=== PATIENT | male | born 1975 | race Caucasian/White ===

== ENCOUNTER 2019-11-06 11:08 | Inpatient (IN) | payer OTHER ==
--- NOTE | 2019-11-06 11:39 | BHS.RME ---
Substance Use & Tx History - Substance Use History Alcohol Substance amount: 2 pints rum Frequency of use: Daily Substance route: Oral Date of Last Use: 11/06/19 Physical/Psych/Mental Status - Behavior General Behavior: Increased activity (restlessness, agitation) Eye Contact: Normal - Cooperativeness Cooperativeness: Cooperative - Thinking Thought Processes: Tight, Logical, Goal Directed - Physical Health Problems Is patient presently having any pain?: No Does patient presently have any injuries (include location): No Does patient currently have a fever: No Is patient : No CIWA Nausea/Vomitin Muscle Tremors: 3 Anxiety: 3 Agitation: 3 Paroxysmal Sweats: 4-Forehead w/Sweat Beads Orientation: 0-Oriented Tacttile Disturbances: 0-None Auditory Disturbances: 0-None Visual Disturbances: 0-None Headache: 3-Moderate CIWA-Ar Total Score: 18
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
[2019-11-06] MEDS ORDERED: MAG HYDROX/AL HYDROX/SIMETH 30 ML UNIT-DOSE CUP PO PRN (12:29)
[2019-11-06] MEDS ORDERED: BISMUTH SUBSALICYLATE 524 MG/30 ML UD PO PRN (12:29)
[2019-11-06] MEDS ORDERED: MENTHOL/PHENOL 1 EACH UD MM PRN (12:29)
[2019-11-06] MEDS ORDERED: ONDANSETRON *ODT* 4 MG TABLET SL PRN (12:29)
[2019-11-06] MEDS ORDERED: chlordiazePOXIDE HCL 25 MG CAPSULE PO PRN (12:29)
[2019-11-06] MEDS ORDERED: IBUPROFEN 400 MG TABLET (FP) PO PRN (12:29)
[2019-11-06] MEDS ORDERED: METHOCARBAMOL 500 MG TABLET PO PRN (12:29)
[2019-11-06] MEDS ORDERED: ACETAMINOPHEN 325 MG TABLET (FP) PO PRN ×2 (12:29)
[2019-11-06] MEDS ORDERED: MAGNESIUM HYDROX 2400MG/30ML ORAL SUSPENSION 30 ML CUP PO PRN (12:29)
[2019-11-06] MEDS ORDERED: MAGNESIUM CITRATE 300 ML BOTTLE PO PRN (12:29)
[2019-11-06 13:08] VITALS: BMI 38.9
[2019-11-06] MEDS ORDERED: hydrOXYzine PAMOATE 25 MG CAPSULE (FP) PO SCH (14:00)
[2019-11-06] MEDS ORDERED: AZITHROMYCIN 500 MG TABLET PO ONE (14:00)
[2019-11-06] MEDS ORDERED: LOSARTAN POTASSIUM 50 MG TABLET (FP) PO SCH (14:15)
[2019-11-06] MEDS ORDERED: LABETALOL HCL 100 MG TABLET (FP) PO SCH (14:15)
[2019-11-06] MEDS: PANTOPRAZOLE 40 MG TABLET PO SCH (14:23)
[2019-11-06] MEDS: AMOXICILLIN 500 MG CAPSULE (FP) PO SCH ×2 (14:23→22:40)
[2019-11-06] MEDS: amLODIPine BESYLATE 10 MG TABLET (FP) PO SCH (14:23)
[2019-11-06] MEDS: BACITRACIN 0.9 GM PACKET TP SCH ×2 (14:24→22:40)
[2019-11-06] MEDS: ASPIRIN 81 MG CHEWABLE TABLETS PO SCH (14:24)
[2019-11-06] MEDS ORDERED: hydrOXYzine PAMOATE 25 MG CAPSULE (FP) PO PRN (14:26)
[2019-11-06] MEDS: LOSARTAN POTASSIUM 25 MG TABLET PO SCH (16:03)
[2019-11-06 17:26] LABS: ALBUMIN 4.3 g/dl (3.4-5.0); BILIRUBIN,TOTAL 0.4 mg/dL (0.2-1); BLOOD UREA NITROGEN 10.1 mg/dL (7-18); CALCIUM 9.1 mg/dL (8.5-10.1); CREATININE 0.9 mg/dL (0.55-1.3); POTASSIUM 3.6 mmol/L (3.5-5.1); TOT PROT 8.3 g/dl (6.4-8.2)
[2019-11-06] MEDS: chlordiazePOXIDE HCL 25 MG CAPSULE PO SCH ×2 (17:44→22:43)
[2019-11-06] MEDS: LABETALOL HCL 100 MG TABLET (FP) PO SCH (22:40)
[2019-11-06] MEDS: MELATONIN 5 MG TABLETS PO SCH (22:40)
[2019-11-06] MEDS: THIAMINE HCL 100 MG TABLET (FP) PO SCH (22:40)
[2019-11-06] MEDS: GEMFIBROZIL 600 MG TABLET (FP) PO SCH (22:41)
[2019-11-07] MEDS: AMOXICILLIN 500 MG CAPSULE (FP) PO SCH ×3 (05:44→22:21)
[2019-11-07] MEDS: chlordiazePOXIDE HCL 25 MG CAPSULE PO SCH ×4 (05:44→22:22)
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
--- NOTE | 2019-11-07 10:32 | PN ---
S CIWA - CIWA Score Nausea/Vomitin-No Nausea/No Vomiting Muscle Tremors: 3 Anxiety: 3 Agitation: 3 Paroxysmal Sweats: 3 Orientation: 0-Oriented Tacttile Disturbances: 0-None Auditory Disturbances: 0-None Visual Disturbances: 0-None Headache: 0-None Present CIWA-Ar Total Score: 12 S Progress Note (SOAP) Subjective: sweats shakes body aches Objective: 11/07/19 10:27 Vital Signs Temperature 97 F L 11/07/19 05:30 Pulse Rate 73 11/07/19 05:30 Respiratory Rate 16 11/07/19 05:30 Blood Pressure 130/81 11/07/19 05:30 O2 Sat by Pulse Oximetry (%) 95 11/07/19 05:30 Laboratory Tests 11/06/19 11/06/19 11/06/19 13:00 13:30 14:00 Sodium 139 Potassium 3.6 Chloride 104 Carbon Dioxide 24 Anion Gap 11 BUN 10.1 Creatinine 0.9 Est GFR (CKD-EPI)AfAm 120.81 Est GFR (CKD-EPI)NonAf 104.24 Random Glucose 113 H Calcium 9.1 Total Bilirubin 0.4 AST 180 H ALT 251 H Alkaline Phosphatase 121 H Total Protein 8.3 H Albumin 4.3 Syphilis Serology Non-reactive HIV Ag/Ab Combo Qual Negative rest of labs pending noted elevated AST/ALT aaox3 ambulating no acute distress Assessment: 11/07/19 10:31 withdrawal sx Plan: continued detox increase fluids d/c tylenol repeat labs
[2019-11-07] MEDS: LABETALOL HCL 100 MG TABLET (FP) PO SCH ×2 (10:53→22:24)
[2019-11-07] MEDS: AZITHROMYCIN 250 MG TABLET PO SCH (10:53)
[2019-11-07] MEDS: BACITRACIN 0.9 GM PACKET TP SCH ×2 (10:53→22:23)
[2019-11-07] MEDS: PANTOPRAZOLE 40 MG TABLET PO SCH (10:53)
[2019-11-07] MEDS: ASPIRIN 81 MG CHEWABLE TABLETS PO SCH (10:53)
[2019-11-07] MEDS: PRENATAL VITAMINS W/ FOLIC ACID TABLET (FP) PO SCH (10:53)
[2019-11-07] MEDS: amLODIPine BESYLATE 10 MG TABLET (FP) PO SCH (10:53)
[2019-11-07] MEDS: GEMFIBROZIL 600 MG TABLET (FP) PO SCH ×2 (10:54→22:23)
[2019-11-07] MEDS: LOSARTAN POTASSIUM 25 MG TABLET PO SCH (10:56)
--- NOTE | 2019-11-07 12:47 | EKG ---
Test Reason : Blood Pressure : / mmHG Vent. Rate : 092 BPM Atrial Rate : 092 BPM P-R Int : 168 ms QRS Dur : 090 ms QT Int : 354 ms P-R-T Axes : 030 027 030 degrees QTc Int : 437 ms NORMAL SINUS RHYTHM CANNOT RULE OUT INFERIOR INFARCT , AGE UNDETERMINED NO PREVIOUS ECGS AVAILABLE Confirmed by KAILA ROJAS MD ([id number]) on 11/07/2019 12:46:44 PM Referred By: Confirmed By:KAILA ROJAS MD
[2019-11-07] MEDS: MIRTAZAPINE 15 MG TABLET (FP) PO SCH (22:22)
[2019-11-07] MEDS: THIAMINE HCL 100 MG TABLET (FP) PO SCH (22:23)
[2019-11-07] MEDS: MELATONIN 5 MG TABLETS PO SCH (22:23)
[2019-11-08] MEDS: AMOXICILLIN 500 MG CAPSULE (FP) PO SCH ×3 (05:46→22:18)
[2019-11-08] MEDS: chlordiazePOXIDE HCL 25 MG CAPSULE PO SCH ×4 (05:46→22:20)
[2019-11-08 09:13] LABS: BASO % 0.5 % (0-2.0); EOS % 3.6 % (0-4.5); HEMATOCRIT 39.5 % (35.4-49); HEMOGLOBIN 13.7 GM/dL (11.7-16.9); LYMPH % 28.2 % (8-40); MCH 32.9 pg (25.7-33.7); MCHC 34.6 g/dl (32.0-35.9); MEAN CELL VOLUME 95.1 fl (80-96); MEAN PLT VOLUME 6.8 fl (7.5-11.1); MONO % 14.6 % (3.8-10.2); NEUT % 53.1 % (42.8-82.8); PLATELET COUNT 289 K/MM3 (134-434); RBC 4.16 M/mm3 (4.00-5.60); RDW 14.1 % (11.9-15.9); WHITE BLOOD COUNT 4.3 K/mm3 (4.0-10.0)
[2019-11-08 09:22] LABS: ALBUMIN 3.7 g/dl (3.4-5.0); BILIRUBIN,TOTAL 0.5 mg/dL (0.2-1); CALCIUM 9.3 mg/dL (8.5-10.1); CREATININE 0.9 mg/dL (0.55-1.3); POTASSIUM 3.9 mmol/L (3.5-5.1); TOT PROT 7.2 g/dl (6.4-8.2)
[2019-11-08] MEDS: BACITRACIN 0.9 GM PACKET TP SCH ×2 (10:20→22:18)
[2019-11-08] MEDS: amLODIPine BESYLATE 10 MG TABLET (FP) PO SCH (10:21)
[2019-11-08] MEDS: PRENATAL VITAMINS W/ FOLIC ACID TABLET (FP) PO SCH (10:21)
[2019-11-08] MEDS: LABETALOL HCL 100 MG TABLET (FP) PO SCH ×2 (10:21→22:18)
[2019-11-08] MEDS: LOSARTAN POTASSIUM 25 MG TABLET PO SCH (10:22)
[2019-11-08] MEDS: AZITHROMYCIN 250 MG TABLET PO SCH (10:22)
[2019-11-08] MEDS: ASPIRIN 81 MG CHEWABLE TABLETS PO SCH (10:22)
[2019-11-08] MEDS: PANTOPRAZOLE 40 MG TABLET PO SCH (10:22)
[2019-11-08] MEDS: GEMFIBROZIL 600 MG TABLET (FP) PO SCH ×2 (10:22→22:19)
--- NOTE | 2019-11-08 12:51 | PN ---
[facility] CIWA - CIWA Score Nausea/Vomitin-No Nausea/No Vomiting Muscle Tremors: 3 Anxiety: 2 Agitation: 1-Slight > Activity Paroxysmal Sweats: 2 Orientation: 0-Oriented Tacttile Disturbances: 0-None Auditory Disturbances: 1-Very Mild Visual Disturbances: 2-Mild Sensitivity Headache: 0-None Present CIWA-Ar Total Score: 11 S Progress Note (SOAP) Subjective: Complaints of sweats, tremors, shakes, noise and light sensitivity. Objective: 11/08/19 12:50 Vital Signs 11/08/19 11/08/19 05:34 09:10 Temperature 97.3 F L 97.3 F L Pulse Rate 75 79 Respiratory 20 20 Rate Blood Pressure 109/61 133/71 O2 Sat by Pulse 99 99 Oximetry (%) Laboratory Last Values WBC 4.3 K/mm3 (4.0-10.0) 11/08/19 06:50 RBC 4.16 M/mm3 (4.00-5.60) 11/08/19 06:50 Hgb 13.7 GM/dL (11.7-16.9) 11/08/19 06:50 Hct 39.5 % (35.4-49) 11/08/19 06:50 MCV 95.1 fl (80-96) 11/08/19 06:50 MCH 32.9 pg (25.7-33.7) 11/08/19 06:50 MCHC 34.6 g/dl (32.0-35.9) 11/08/19 06:50 RDW 14.1 % (11.9-15.9) 11/08/19 06:50 Plt Count 289 K/MM3 (134-434) 11/08/19 06:50 MPV 6.8 fl (7.5-11.1) L 11/08/19 06:50 Absolute Neuts (auto) 2.3 K/mm3 (1.5-8.0) 11/08/19 06:50 Neutrophils % 53.1 % (42.8-82.8) 11/08/19 06:50 Lymphocytes % 28.2 % (8-40) 11/08/19 06:50 Monocytes % 14.6 % (3.8-10.2) H 11/08/19 06:50 Eosinophils % 3.6 % (0-4.5) 11/08/19 06:50 Basophils % 0.5 % (0-2.0) 11/08/19 06:50 Nucleated RBC % 0 % (0-0) 11/08/19 06:50 Sodium 142 mmol/L (136-145) 11/08/19 06:50 Potassium 3.9 mmol/L (3.5-5.1) 11/08/19 06:50 Chloride 106 mmol/L (98-107) 11/08/19 06:50 Carbon Dioxide 28 mmol/L (21-32) 11/08/19 06:50 Anion Gap 8 MMOL/L (8-16) 11/08/19 06:50 BUN 10.0 mg/dL (7-18) 11/08/19 06:50 Creatinine 0.9 mg/dL (0.55-1.3) 11/08/19 06:50 Est GFR (CKD-EPI)AfAm 120.81 11/08/19 06:50 Est GFR (CKD-EPI)NonAf 104.24 11/08/19 06:50 Random Glucose 119 mg/dL (74-106) H 11/08/19 06:50 Calcium 9.3 mg/dL (8.5-10.1) 11/08/19 06:50 Total Bilirubin 0.5 mg/dL (0.2-1) 11/08/19 06:50 AST 184 U/L (15-37) H 11/08/19 06:50 ALT 261 U/L (13-61) H 11/08/19 06:50 Alkaline Phosphatase 112 U/L (45-117) 11/08/19 06:50 Total Protein 7.2 g/dl (6.4-8.2) 11/08/19 06:50 Albumin 3.7 g/dl (3.4-5.0) 11/08/19 06:50 Syphilis Serology Non-reactive (NONREACTIVE) 11/06/19 13:00 HIV Ag/Ab Combo Qual Negative (NEGATIVE) 11/06/19 13:30 Labs noted. Assessment: 11/08/19 12:51 Alert and oriented x3, in no acute respiratory distress. Full ROM, ambulating in hallway with assistance. Skin warm to touch with no lesions noted. Withdrawal symptoms. Dry dressing noted to right forearm. Plan: Continue detox protocol.
[2019-11-08] MEDS: THIAMINE HCL 100 MG TABLET (FP) PO SCH (22:19)
[2019-11-08] MEDS: MIRTAZAPINE 15 MG TABLET (FP) PO SCH (22:19)
[2019-11-08] MEDS: MELATONIN 5 MG TABLETS PO SCH (22:23)
[2019-11-09] MEDS ORDERED: chlordiazePOXIDE HCL 10 MG CAPSULE PO PRN
[2019-11-09] MEDS: chlordiazePOXIDE HCL 10 MG CAPSULE PO SCH ×4 (05:48→22:04)
[2019-11-09] MEDS: AMOXICILLIN 500 MG CAPSULE (FP) PO SCH ×3 (07:09→22:03)
[2019-11-09] MEDS: BACITRACIN 0.9 GM PACKET TP SCH ×2 (10:36→22:05)
[2019-11-09] MEDS: LABETALOL HCL 100 MG TABLET (FP) PO SCH ×2 (10:36→22:04)
[2019-11-09] MEDS: amLODIPine BESYLATE 10 MG TABLET (FP) PO SCH (10:37)
[2019-11-09] MEDS: PANTOPRAZOLE 40 MG TABLET PO SCH (10:37)
[2019-11-09] MEDS: LOSARTAN POTASSIUM 25 MG TABLET PO SCH (10:37)
[2019-11-09] MEDS: ASPIRIN 81 MG CHEWABLE TABLETS PO SCH (10:37)
[2019-11-09] MEDS: AZITHROMYCIN 250 MG TABLET PO SCH (10:37)
[2019-11-09] MEDS: PRENATAL VITAMINS W/ FOLIC ACID TABLET (FP) PO SCH (10:37)
--- NOTE | 2019-11-09 14:05 | PN ---
S CIWA - CIWA Score Nausea/Vomitin-No Nausea/No Vomiting Muscle Tremors: 2 Anxiety: 2 Agitation: 0-Normal Activity Paroxysmal Sweats: 3 Orientation: 0-Oriented Tacttile Disturbances: 0-None Auditory Disturbances: 0-None Visual Disturbances: 0-None Headache: 2-Mild CIWA-Ar Total Score: 9 BHS Progress Note (SOAP) Subjective: ETOH WITHDRAWAL SX ROS: C/O MILD ANXIETY, SWEATS, SHAKES AND HEADACHE Objective: 11/09/19 13:59 Laboratory Tests 11/06/19 11/06/19 11/06/19 13:00 13:30 14:00 WBC RBC Hgb Hct MCV MCH MCHC RDW Plt Count MPV Absolute Neuts (auto) Neutrophils % Lymphocytes % Monocytes % Eosinophils % Basophils % Nucleated RBC % Sodium 139 Potassium 3.6 Chloride 104 Carbon Dioxide 24 Anion Gap 11 BUN 10.1 Creatinine 0.9 Est GFR (CKD-EPI)AfAm 120.81 Est GFR (CKD-EPI)NonAf 104.24 Random Glucose 113 H Calcium 9.1 Total Bilirubin 0.4 AST 180 H ALT 251 H Alkaline Phosphatase 121 H Total Protein 8.3 H Albumin 4.3 Syphilis Serology Non-reactive HIV Ag/Ab Combo Qual Negative 11/08/19 11/08/19 06:50 06:50 WBC 4.3 RBC 4.16 Hgb 13.7 Hct 39.5 MCV 95.1 MCH 32.9 MCHC 34.6 RDW 14.1 Plt Count 289 MPV 6.8 L Absolute Neuts (auto) 2.3 Neutrophils % 53.1 Lymphocytes % 28.2 Monocytes % 14.6 H Eosinophils % 3.6 Basophils % 0.5 Nucleated RBC % 0 Sodium 142 Potassium 3.9 Chloride 106 Carbon Dioxide 28 Anion Gap 8 BUN 10.0 Creatinine 0.9 Est GFR (CKD-EPI)AfAm 120.81 Est GFR (CKD-EPI)NonAf 104.24 Random Glucose 119 H Calcium 9.3 Total Bilirubin 0.5 AST 184 H ALT 261 H Alkaline Phosphatase 112 Total Protein 7.2 Albumin 3.7 Syphilis Serology HIV Ag/Ab Combo Qual Vital Signs Temperature 97.1 F L 11/09/19 08:39 Pulse Rate 80 11/09/19 08:39 Respiratory Rate 18 11/09/19 08:39 Blood Pressure 136/81 11/09/19 08:39 O2 Sat by Pulse Oximetry (%) 98 11/09/19 08:39 PE ALERT AND ORIENTED X 3 SKIN WARM, MILD FACIAL MOISTURE EOMS INTACT BL IN NAD EXT FULL ROM, AMB AD JEAN-PIERRE MILD TREMORS AND ANXIETY Assessment: 11/09/19 14:08 ELEVATED LFTS ETOH WITHDRAWAL SX Plan: CONTINUE DETOX REPEAT CMP IN AM
[2019-11-09] MEDS: GEMFIBROZIL 600 MG TABLET (FP) PO SCH ×2 (14:34→22:03)
[2019-11-09] MEDS: MIRTAZAPINE 15 MG TABLET (FP) PO SCH (22:04)
[2019-11-09] MEDS: THIAMINE HCL 100 MG TABLET (FP) PO SCH (22:04)
[2019-11-09] MEDS: MELATONIN 5 MG TABLETS PO SCH (22:05)
[2019-11-10] MEDS: chlordiazePOXIDE HCL 10 MG CAPSULE PO SCH ×2 (05:18→17:29)
[2019-11-10] MEDS: AMOXICILLIN 500 MG CAPSULE (FP) PO SCH ×3 (07:30→21:16)
[2019-11-10] MEDS: PANTOPRAZOLE 40 MG TABLET PO SCH (10:12)
[2019-11-10] MEDS: GEMFIBROZIL 600 MG TABLET (FP) PO SCH ×2 (10:12→21:18)
[2019-11-10] MEDS: amLODIPine BESYLATE 10 MG TABLET (FP) PO SCH (10:12)
[2019-11-10] MEDS: BACITRACIN 0.9 GM PACKET TP SCH ×2 (10:12→21:19)
[2019-11-10] MEDS: LABETALOL HCL 100 MG TABLET (FP) PO SCH ×2 (10:12→21:16)
[2019-11-10] MEDS: ASPIRIN 81 MG CHEWABLE TABLETS PO SCH (10:12)
[2019-11-10] MEDS: LOSARTAN POTASSIUM 25 MG TABLET PO SCH (10:12)
[2019-11-10] MEDS: PRENATAL VITAMINS W/ FOLIC ACID TABLET (FP) PO SCH (10:13)
[2019-11-10] MEDS: AZITHROMYCIN 250 MG TABLET PO SCH (10:13)
--- NOTE | 2019-11-10 11:17 | PN ---
[facility] CIWA - CIWA Score Nausea/Vomitin-No Nausea/No Vomiting Muscle Tremors: 1-None Visible, but [place] Anxiety: 1-Mildly Anxious Agitation: 1-Slight > Activity Paroxysmal Sweats: No Perspiration Orientation: 0-Oriented Tacttile Disturbances: 0-None Auditory Disturbances: 0-None Visual Disturbances: 0-None Headache: 0-None Present CIWA-Ar Total Score: 3 BHS Progress Note (SOAP) Subjective: sweats agitation Objective: 11/10/19 11:16 Vital Signs Temperature 97.1 F L 11/10/19 10:58 Pulse Rate 79 11/10/19 10:58 Respiratory Rate 18 11/10/19 10:58 Blood Pressure 126/87 11/10/19 10:58 O2 Sat by Pulse Oximetry (%) 98 11/10/19 05:05 aaox3 ambulating no acute distress Assessment: 11/10/19 11:16 mild withdrawals Plan: complete detox d/c in am
[2019-11-10 11:19] LABS: ALBUMIN 3.7 g/dl (3.4-5.0); BILIRUBIN,TOTAL 0.4 mg/dL (0.2-1); CALCIUM 9.8 mg/dL (8.5-10.1); CREATININE 0.9 mg/dL (0.55-1.3); TOT PROT 7.2 g/dl (6.4-8.2)
[2019-11-10] MEDS: MIRTAZAPINE 15 MG TABLET (FP) PO SCH (21:16)
[2019-11-10] MEDS: THIAMINE HCL 100 MG TABLET (FP) PO SCH (21:16)
[2019-11-10] MEDS: MELATONIN 5 MG TABLETS PO SCH (21:17)
[2019-11-10 21:54] VITALS: TEMP 97.5
[2019-11-11] MEDS ORDERED: chlordiazePOXIDE HCL 10 MG CAPSULE PO ONE (05:00)
[2019-11-11] MEDS: AMOXICILLIN 500 MG CAPSULE (FP) PO SCH (06:10)
[2019-11-11 06:41] VITALS: BP 109/67; PULSE 85
--- NOTE | 2019-11-11 10:22 | DS ---
[facility] Detox Discharge Summary Admission Date: 11/06/19 Discharge Date: 11/11/19 - History Present History: Alcohol Dependence - Physical Exam Results Vital Signs: Vital Signs Temperature 97.5 F L 11/11/19 05:43 Pulse Rate 85 11/11/19 05:43 Respiratory Rate 18 11/11/19 05:43 Blood Pressure 109/67 11/11/19 05:43 O2 Sat by Pulse Oximetry (%) 97 11/11/19 05:43 Pertinent Admission Physical Exam Findings: Vital Signs Temperature 97.5 F L 11/11/19 05:43 Pulse Rate 85 11/11/19 05:43 Respiratory Rate 18 11/11/19 05:43 Blood Pressure 109/67 11/11/19 05:43 O2 Sat by Pulse Oximetry (%) 97 11/11/19 05:43 Laboratory Tests 11/06/19 11/06/19 11/06/19 13:00 13:30 14:00 WBC RBC Hgb Hct MCV MCH MCHC RDW Plt Count MPV Absolute Neuts (auto) Neutrophils % Lymphocytes % Monocytes % Eosinophils % Basophils % Nucleated RBC % Sodium 139 Potassium 3.6 Chloride 104 Carbon Dioxide 24 Anion Gap 11 BUN 10.1 Creatinine 0.9 Est GFR (CKD-EPI)AfAm 120.81 Est GFR (CKD-EPI)NonAf 104.24 Random Glucose 113 H Calcium 9.1 Total Bilirubin 0.4 AST 180 H ALT 251 H Alkaline Phosphatase 121 H Total Protein 8.3 H Albumin 4.3 Syphilis Serology Non-reactive HIV Ag/Ab Combo Qual Negative 11/08/19 11/08/19 11/10/19 06:50 06:50 08:00 WBC 4.3 RBC 4.16 Hgb 13.7 Hct 39.5 MCV 95.1 MCH 32.9 MCHC 34.6 RDW 14.1 Plt Count 289 MPV 6.8 L Absolute Neuts (auto) 2.3 Neutrophils % 53.1 Lymphocytes % 28.2 Monocytes % 14.6 H Eosinophils % 3.6 Basophils % 0.5 Nucleated RBC % 0 Sodium 142 139 Potassium 3.9 4.0 Chloride 106 104 Carbon Dioxide 28 29 Anion Gap 8 6 L BUN 10.0 10.0 Creatinine 0.9 0.9 Est GFR (CKD-EPI)AfAm 120.81 120.81 Est GFR (CKD-EPI)NonAf 104.24 104.24 Random Glucose 119 H 146 H Calcium 9.3 9.8 Total Bilirubin 0.5 0.4 AST 184 H 118 H ALT 261 H 235 H Alkaline Phosphatase 112 141 H Total Protein 7.2 7.2 Albumin 3.7 3.7 Syphilis Serology HIV Ag/Ab Combo Qual aaox3 ambulating no acute distress slight improvement of liver enzymes results. encouraged to continue abstinence of alcohol consumption, encourage water intake. encourage to visit his PCP for check up if needed. - Treatment Hospital Course: Detox Protocol Followed, Detoxed Safely, Responded well, Discharged Condition Good, Rehab Referral Accepted - Medication Discharge Medications: Ambulatory Orders Amlodipine Besylate 10 mg PO DAILY 11/06/19 Aspirin 81 mg PO DAILY 11/06/19 Azilsartan Medoxomil [Edarbi] 40 mg PO DAILY 11/06/19 Folic Acid - 1 mg PO DAILY 11/06/19 Gemfibrozil [Lopid] 600 mg PO BID 11/06/19 Labetalol HCl 300 mg PO BID 11/06/19 Losartan Potassium 25 mg PO DAILY 11/06/19 Omeprazole 40 mg PO DAILY 11/06/19 Sertraline HCl [Zoloft] 200 mg PO DAILY 11/06/19 Thiamine HCl [B-1] 100 mg PO DAILY 11/06/19 - Diagnosis (1) Alcohol dependence with withdrawal, uncomplicated Status: Chronic (2) Alcohol-induced anxiety disorder Status: Acute (3) Alcohol-induced sleep disorder Status: Acute (4) Depression Status: Acute (5) Sleep apnea Status: Suspected Qualifiers: Sleep apnea type: unspecified type Qualified Code(s): G47.30 - Sleep apnea, unspecified (6) GERD (gastroesophageal reflux disease) Status: Chronic Qualifiers: Esophagitis presence: without esophagitis Qualified Code(s): K21.9 - Gastro-esophageal reflux disease without esophagitis (7) HLD (hyperlipidemia) Status: Chronic Qualifiers: Hyperlipidemia type: unspecified Qualified Code(s): E78.5 - Hyperlipidemia, unspecified (8) HTN (hypertension) Status: Chronic Qualifiers: Hypertension type: essential hypertension Qualified Code(s): I10 - Esse ntial (primary) hypertension (9) Social anxiety disorder Status: Chronic - AMA Did Patient Leave Against Medical Advice: No
== END 2019-11-11 09:40 | disposition home or self-care (01) | DRG 775 ==
LOC: YASAS 11:08 → Y6N 13:19
PROVIDERS: ADMIT Allergy & Immunology; ATTEND Allergy & Immunology
PROC: HZ2ZZZZ Detoxification Services for Substance Abuse Treatment (ICD-10-PCS; principal; 2019-11-06)
DX: F10.230 Alcohol dependence with withdrawal, uncomplicated (principal); F10.220 Alcohol dependence with intoxication, uncomplicated; F10.280 Alcohol dependence with alcohol-induced anxiety disorder; F10.282 Alcohol dependence with alcohol-induced sleep disorder; F32.9 Major depressive disorder, single episode, unspecified; F40.10 Social phobia, unspecified; I10 Essential (primary) hypertension; E78.5 Hyperlipidemia, unspecified; G47.30 Sleep apnea, unspecified; K21.9 Gastro-esophageal reflux disease without esophagitis; R94.5 Abnormal results of liver function studies; J18.9 Pneumonia, unspecified organism; E66.9 Obesity, unspecified; Z68.39 Body mass index [BMI] 39.0-39.9, adult; Z87.891 Personal history of nicotine dependence; Z86.69 Personal history of other diseases of the nervous system and sense organs
CPT/HCPCS: 36415; 80053; 85025; 86780; 87389; 93005; 93010

== ENCOUNTER 2020-08-23 13:47 | Inpatient (IN) | payer OTHER ==
[2020-08-23 15:51] VITALS: BMI 39.1
[2020-08-23] MEDS ORDERED: LISINOPRIL 10 MG TABLET ONE (15:54)
[2020-08-23] MEDS ORDERED: MAG HYDROX/AL HYDROX/SIMETH 30 ML UNIT-DOSE CUP PO PRN (16:08)
[2020-08-23] MEDS ORDERED: METHOCARBAMOL 500 MG TABLET PO PRN (16:08)
[2020-08-23] MEDS ORDERED: MAGNESIUM CITRATE 300 ML BOTTLE PO PRN (16:08)
[2020-08-23] MEDS ORDERED: ACETAMINOPHEN 325 MG TABLET (FP) PO PRN ×2 (16:08)
[2020-08-23] MEDS ORDERED: LORazepam 1 MG TABLET PO PRN (16:08)
[2020-08-23] MEDS ORDERED: MENTHOL/PHENOL 1 EACH UD MM PRN (16:08)
[2020-08-23] MEDS ORDERED: ONDANSETRON *ODT* 4 MG TABLET SL PRN (16:08)
[2020-08-23] MEDS ORDERED: IBUPROFEN 400 MG TABLET (FP) PO PRN (16:08)
[2020-08-23] MEDS ORDERED: BISMUTH SUBSALICYLATE 524 MG/30 ML PO PRN (16:08)
[2020-08-23] MEDS ORDERED: NICOTINE POLACRILEX 2 MG GUM BUC PRN (16:08)
[2020-08-23] MEDS ORDERED: MAGNESIUM HYDROX 2400MG/30ML ORAL SUSPENSION 30 ML CUP PO PRN (16:08)
[2020-08-23] MEDS ORDERED: LISINOPRIL 10 MG TABLET PO ONE (16:36)
[2020-08-23] MEDS: NICOTINE 7 MG/24 HOURS TOPICAL PATCH TD SCH (18:30)
[2020-08-23] MEDS: hydrOXYzine PAMOATE 25 MG CAPSULE (FP) PO SCH ×2 (18:32→22:37)
[2020-08-23] MEDS: PRENATAL VITAMINS W/ FOLIC ACID TABLET (FP) PO SCH (18:32)
[2020-08-23] MEDS: LORazepam 2 MG TABLET PO SCH ×2 (18:32→22:36)
[2020-08-23] MEDS ORDERED: LABETALOL HCL 200 MG TABLET (FP) PO SCH (22:00)
[2020-08-23] MEDS: THIAMINE HCL 100 MG TABLET (FP) PO SCH (22:35)
[2020-08-23] MEDS: MELATONIN 5 MG TABLETS PO SCH (22:35)
[2020-08-24] MEDS: LABETALOL HCL 100 MG TABLET (FP) PO SCH ×3 (00:48→22:04)
[2020-08-24] MEDS: hydrOXYzine PAMOATE 25 MG CAPSULE (FP) PO SCH ×5 (06:14→22:05)
[2020-08-24] MEDS: LORazepam 2 MG TABLET PO SCH ×5 (06:17→22:05)
[2020-08-24] MEDS ORDERED: PATIENT'S OWN MEDICATION (NON-FORMULARY) (Omeprazole [Omeprazole] 20 MG Tablet.Dr) PO SCH (10:00)
[2020-08-24 10:25] LABS: HEMATOCRIT 39.5 % (35.4-49); HEMOGLOBIN 13.8 GM/dL (11.7-16.9); MCH 31.3 pg (25.7-33.7); MCHC 34.9 g/dl (32.0-35.9); MEAN CELL VOLUME 89.9 fl (80-96); MEAN PLT VOLUME 6.5 fl (7.5-11.1); PLATELET COUNT 193 K/MM3 (134-434); RDW 14.7 % (11.9-15.9); WHITE BLOOD COUNT 6.1 K/mm3 (4.0-10.0)
[2020-08-24] MEDS: PRENATAL VITAMINS W/ FOLIC ACID TABLET (FP) PO SCH (10:27)
[2020-08-24] MEDS: amLODIPine BESYLATE 10 MG TABLET (FP) PO SCH (10:27)
[2020-08-24] MEDS: PANTOPRAZOLE 40 MG TABLET PO SCH (10:27)
[2020-08-24] MEDS: LOSARTAN POTASSIUM 25 MG TABLET PO SCH (10:27)
[2020-08-24] MEDS: ASPIRIN 81 MG CHEWABLE TABLETS PO SCH (10:29)
[2020-08-24] MEDS: NICOTINE 7 MG/24 HOURS TOPICAL PATCH TD SCH (10:30)
[2020-08-24 10:39] LABS: ALBUMIN 3.6 g/dl (3.4-5.0)
[2020-08-24 10:43] LABS: CALCIUM 8.4 mg/dL (8.5-10.1)
[2020-08-24 10:45] LABS: CREATININE 0.7 mg/dL (0.55-1.3)
[2020-08-24 10:46] LABS: BILIRUBIN,TOTAL 0.9 mg/dL (0.2-1); TOT PROT 7.3 g/dl (6.4-8.2)
[2020-08-24 10:48] LABS: BLOOD UREA NITROGEN 11.8 mg/dL (7-18)
[2020-08-24] MEDS: GABAPENTIN 300 MG CAPSULE PO SCH ×2 (13:07→22:05)
[2020-08-24] MEDS ORDERED: MASKS NR ONE (19:35)
[2020-08-24] MEDS: MIRTAZAPINE 15 MG TABLET (FP) PO SCH (22:03)
[2020-08-24] MEDS: THIAMINE HCL 100 MG TABLET (FP) PO SCH (22:05)
[2020-08-24] MEDS: MELATONIN 5 MG TABLETS PO SCH (23:14)
[2020-08-25] MEDS: GABAPENTIN 300 MG CAPSULE PO SCH ×3 (06:26→22:29)
[2020-08-25] MEDS: hydrOXYzine PAMOATE 25 MG CAPSULE (FP) PO SCH ×5 (06:27→22:29)
[2020-08-25] MEDS: LORazepam 1 MG TABLET PO SCH ×4 (06:27→22:31)
[2020-08-25] MEDS: amLODIPine BESYLATE 10 MG TABLET (FP) PO SCH (10:29)
[2020-08-25] MEDS: LOSARTAN POTASSIUM 25 MG TABLET PO SCH (10:29)
[2020-08-25] MEDS: PANTOPRAZOLE 40 MG TABLET PO SCH (10:29)
[2020-08-25] MEDS: ASPIRIN 81 MG CHEWABLE TABLETS PO SCH (10:29)
[2020-08-25] MEDS: LABETALOL HCL 100 MG TABLET (FP) PO SCH ×2 (10:30→22:29)
[2020-08-25] MEDS: NICOTINE 7 MG/24 HOURS TOPICAL PATCH TD SCH (10:30)
[2020-08-25] MEDS: PRENATAL VITAMINS W/ FOLIC ACID TABLET (FP) PO SCH (10:30)
[2020-08-25] MEDS: MELATONIN 5 MG TABLETS PO SCH (22:29)
[2020-08-25] MEDS: THIAMINE HCL 100 MG TABLET (FP) PO SCH (22:29)
[2020-08-25] MEDS: MIRTAZAPINE 15 MG TABLET (FP) PO SCH (22:29)
[2020-08-26] MEDS ORDERED: LORazepam 0.5 MG TABLET PO PRN
[2020-08-26] MEDS: hydrOXYzine PAMOATE 25 MG CAPSULE (FP) PO SCH ×5 (05:59→22:37)
[2020-08-26] MEDS: GABAPENTIN 300 MG CAPSULE PO SCH ×3 (05:59→22:36)
[2020-08-26] MEDS: LORazepam 0.5 MG TABLET PO SCH ×4 (06:02→22:37)
[2020-08-26 08:12] LABS: SARS-CoV-2 NAA Not Detected (Not Detected)
[2020-08-26] MEDS: ASPIRIN 81 MG CHEWABLE TABLETS PO SCH (10:48)
[2020-08-26] MEDS: PANTOPRAZOLE 40 MG TABLET PO SCH (10:48)
[2020-08-26] MEDS: PRENATAL VITAMINS W/ FOLIC ACID TABLET (FP) PO SCH (10:48)
[2020-08-26] MEDS: LOSARTAN POTASSIUM 25 MG TABLET PO SCH (10:48)
[2020-08-26] MEDS: LABETALOL HCL 100 MG TABLET (FP) PO SCH ×2 (10:48→22:36)
[2020-08-26] MEDS: amLODIPine BESYLATE 10 MG TABLET (FP) PO SCH (10:49)
[2020-08-26] MEDS: NICOTINE 7 MG/24 HOURS TOPICAL PATCH TD SCH (10:50)
[2020-08-26] MEDS: MELATONIN 5 MG TABLETS PO SCH (22:36)
[2020-08-26] MEDS: MIRTAZAPINE 15 MG TABLET (FP) PO SCH (22:36)
[2020-08-26] MEDS: THIAMINE HCL 100 MG TABLET (FP) PO SCH (22:37)
[2020-08-27] MEDS ORDERED: LORazepam 0.5 MG TABLET PO ONE (05:00)
[2020-08-27] MEDS: hydrOXYzine PAMOATE 25 MG CAPSULE (FP) PO SCH ×2 (05:19→09:31)
[2020-08-27] MEDS: GABAPENTIN 300 MG CAPSULE PO SCH (05:19)
[2020-08-27] MEDS: ASPIRIN 81 MG CHEWABLE TABLETS PO SCH (09:22)
[2020-08-27] MEDS: PANTOPRAZOLE 40 MG TABLET PO SCH (09:22)
[2020-08-27] MEDS: amLODIPine BESYLATE 10 MG TABLET (FP) PO SCH (09:22)
[2020-08-27] MEDS: LABETALOL HCL 100 MG TABLET (FP) PO SCH (09:23)
[2020-08-27] MEDS: NICOTINE 7 MG/24 HOURS TOPICAL PATCH TD SCH (09:24)
[2020-08-27] MEDS: PRENATAL VITAMINS W/ FOLIC ACID TABLET (FP) PO SCH (09:31)
[2020-08-27] MEDS: LOSARTAN POTASSIUM 25 MG TABLET PO SCH (09:31)
[2020-08-27 09:35] VITALS: TEMP 98.7
[2020-08-27 11:15] VITALS: BP 134/82; PULSE 88
== END 2020-08-27 10:33 | disposition home or self-care (01) | DRG 775 ==
LOC: YASAS 13:47 → Y6N 17:13
PROVIDERS: ADMIT Allergy & Immunology; ATTEND Allergy & Immunology
PROC: HZ2ZZZZ Detoxification Services for Substance Abuse Treatment (ICD-10-PCS; principal; 2020-08-23)
DX: F10.230 Alcohol dependence with withdrawal, uncomplicated (principal); F17.210 Nicotine dependence, cigarettes, uncomplicated; F10.282 Alcohol dependence with alcohol-induced sleep disorder; F10.280 Alcohol dependence with alcohol-induced anxiety disorder; F40.10 Social phobia, unspecified; I10 Essential (primary) hypertension; K21.9 Gastro-esophageal reflux disease without esophagitis; L29.8 Other pruritus; G47.30 Sleep apnea, unspecified; R74.01 Elevation of levels of liver transaminase levels; E66.9 Obesity, unspecified; Z68.39 Body mass index [BMI] 39.0-39.9, adult; Z59.0 Homelessness; Z88.8 Allergy status to other drugs, medicaments and biological substances
CPT/HCPCS: 36415; 80053; 85027; 86780; C9803; U0003; U0005

== ENCOUNTER 2023-09-02 19:55 | Inpatient (IN) | payer OTHER ==
[2023-09-02 20:39] VITALS: BMI 40.9
[2023-09-02] MEDS ORDERED: POLYETHYLENE GLYCOL (HEALTHYLAX) 3350 17 GM PACKET PO PRN (22:32)
[2023-09-02] MEDS ORDERED: BENZONATATE 200 MG CAPSULE PO PRN (22:32)
[2023-09-02] MEDS ORDERED: IBUPROFEN 400 MG TABLET (FP) PO PRN (22:32)
[2023-09-02] MEDS ORDERED: NALOXONE HCL 0.4 MG/ML VIAL IM PRN (22:32)
[2023-09-02] MEDS ORDERED: guaiFENesin 600 MG TABLET.ER (FP) PO PRN (22:32)
[2023-09-02] MEDS ORDERED: ONDANSETRON *ODT* 4 MG TABLET SL PRN (22:32)
[2023-09-02] MEDS ORDERED: MAG HYDROX/AL HYDROX/SIMETH 30 ML UNIT-DOSE CUP PO PRN (22:32)
[2023-09-02] MEDS ORDERED: IBUPROFEN 600 MG TABLET (FP) PO PRN (22:32)
[2023-09-02] MEDS ORDERED: BENZOCAINE/MENTHOL (CHLORASEPTIC ) LOZENGE MM PRN (22:32)
[2023-09-02] MEDS ORDERED: DICYCLOMINE HCL 10 MG CAPSULE PO PRN (22:32)
[2023-09-02] MEDS ORDERED: NALOXONE HCL (KLOXXADO) 8 MG SPRAY NS PRN (22:32)
[2023-09-02] MEDS ORDERED: MAGNESIUM HYDROX 2400MG/30ML ORAL SUSPENSION 30 ML CUP PO PRN (22:32)
[2023-09-02] MEDS ORDERED: cloNIDine HCL 0.1 MG TABLET ONE (22:50)
[2023-09-02] MEDS ORDERED: LORazepam 2 MG TABLET ONE (22:51)
[2023-09-02] MEDS: cloNIDine HCL 0.1 MG TABLET PO ONE (22:54)
[2023-09-02] MEDS: LORazepam 2 MG TABLET PO SCH (22:54)
[2023-09-02] MEDS: hydrOXYzine PAMOATE 25 MG CAPSULE (FP) PO PRN (23:35)
[2023-09-02] MEDS: METHOCARBAMOL 500 MG TABLET PO PRN (23:35)
[2023-09-03] MEDS: LORazepam 1 MG TABLET PO PRN (01:45)
[2023-09-03] MEDS: ACETAMINOPHEN 325 MG TABLET (FP) PO PRN (03:28)
[2023-09-03] MEDS: amLODIPine BESYLATE 10 MG TABLET (FP) PO SCH (09:47)
[2023-09-03] MEDS: LOSARTAN POTASSIUM 25 MG TABLET PO SCH (09:47)
[2023-09-03] MEDS: ASPIRIN 81 MG CHEWABLE TABLETS PO SCH (09:50)
[2023-09-03] MEDS: PRENATAL VITAMINS W/ FOLIC ACID TABLET (FP) PO SCH (09:51)
[2023-09-03] MEDS ORDERED: GEMFIBROZIL 600 MG TABLET (FP) PO SCH (10:00)
[2023-09-03] MEDS: FLU VACCINE (FLULAVAL) PF 60 MCG/0.5 ML SYRINGE 2023-2024 IM ONE (11:02)
[2023-09-03 11:56] LABS: HEMATOCRIT 36.2 % (35.4-49); HEMOGLOBIN 12.9 GM/dL (11.7-16.9); MCH 30.6 pg (25.7-33.7); MCHC 35.7 g/dl (32.0-35.9); MEAN CELL VOLUME 85.9 fl (80-96); MEAN PLT VOLUME 6.4 fl (7.5-11.1); PLATELET COUNT 203 10^3/uL (134-434); RBC 4.22 M/mm3 (4.00-5.60); RDW 13.8 % (11.9-15.9); WHITE BLOOD COUNT 5.4 K/mm3 (4.0-10.0)
[2023-09-03 12:28] LABS: CHLORIDE 102 mmol/L (98-107); SODIUM 139 mmol/L (136-145)
[2023-09-03 12:33] LABS: CALCIUM 8.3 mg/dL (8.5-10.1)
[2023-09-03 12:34] LABS: ALBUMIN 3.8 g/dl (3.4-5.0); ANION GAP 9 mmol/L (4-13); BLOOD UREA NITROGEN 10.6 mg/dL (7-18); CO2 28 mmol/L (21-32); GLUCOSE,RANDOM 109 mg/dL (74-106)
[2023-09-03 12:36] LABS: CREATININE 0.6 mg/dL (0.55-1.3); SGPT/ALT 28 U/L (13-61)
[2023-09-03 12:37] LABS: BILIRUBIN,TOTAL 1.1 mg/dL (0.2-1); SGOT/AST 30 U/L (15-37); TOT PROT 7.5 g/dl (6.4-8.2)
[2023-09-03 12:38] LABS: ALK PHOS 108 U/L (45-117)
[2023-09-03] MEDS: LABETALOL HCL 100 MG TABLET (FP) PO SCH (12:39)
[2023-09-03] MEDS: GABAPENTIN 400 MG CAPSULE PO SCH (13:19)
[2023-09-03] MEDS: GEMFIBROZIL 600 MG TABLET (FP) PO SCH (17:44)
[2023-09-03] MEDS: POTASSIUM CHLORIDE ORAL LIQUID 20 MEQ/15 ML PO SCH (17:44)
[2023-09-03] MEDS: THIAMINE 100 MG TABLET PO SCH (22:04)
[2023-09-03] MEDS: MIRTAZAPINE 15 MG TABLET (FP) PO SCH (22:05)
[2023-09-03] MEDS: MELATONIN 5 MG TABLETS PO SCH (22:08)
[2023-09-04] MEDS: LORazepam 1 MG TABLET PO SCH (05:15)
[2023-09-04] MEDS: LOPERAMIDE HCL 2 MG CAPSULE PO PRN (10:23)
[2023-09-04] MEDS: BISMUTH SUBSALICYLATE 524 MG/30 ML PO PRN (13:21)
[2023-09-05] MEDS ORDERED: LORazepam 0.5 MG TABLET PO PRN
[2023-09-05] MEDS: LORazepam 0.5 MG TABLET PO SCH (05:26)
[2023-09-06] MEDS: LORazepam 0.5 MG TABLET PO ONE (05:28)
[2023-09-06 06:22] VITALS: TEMP 98
[2023-09-06 09:22] VITALS: BP 127/90; PULSE 101; RESP 18
== END 2023-09-06 09:36 | disposition home or self-care (01) | DRG 775 ==
LOC: YASAS 19:55 → Y6N 22:46
PROVIDERS: ADMIT Allergy & Immunology; ATTEND Surgery
PROC: HZ2ZZZZ Detoxification Services for Substance Abuse Treatment (ICD-10-PCS; principal; 2023-09-02)
DX: F10.230 Alcohol dependence with withdrawal, uncomplicated (principal); F17.210 Nicotine dependence, cigarettes, uncomplicated; F10.280 Alcohol dependence with alcohol-induced anxiety disorder; F10.282 Alcohol dependence with alcohol-induced sleep disorder; F41.8 Other specified anxiety disorders; E87.5 Hyperkalemia; E78.5 Hyperlipidemia, unspecified; I10 Essential (primary) hypertension; K21.9 Gastro-esophageal reflux disease without esophagitis; K76.0 Fatty (change of) liver, not elsewhere classified; G62.9 Polyneuropathy, unspecified; E66.01 Morbid (severe) obesity due to excess calories; Z68.41 Body mass index [BMI] 40.0-44.9, adult; Z99.89 Dependence on other enabling machines and devices; Z59.00 Homelessness unspecified; Z88.8 Allergy status to other drugs, medicaments and biological substances
CPT/HCPCS: 36415; 80053; 80305; 80307; 84132; 85027; 86780; 93005; 93010